=== PATIENT | male | born 1955 | race Caucasian/White ===

== ENCOUNTER 2016-05-10 14:03 | Day surgery (SDC) | payer MEDICARE, OTHER ==
[~2016-05-10] VITALS: Ht 180.3 cm; Wt 77.1 kg
--- NOTE | 2016-05-10 13:25 | PCM.HPANE ---
Patient Data Date of Service: May 10, 2016 Surgeon Admitting Provider: Attending Provider:Kranthi Aquino MD Primary Care Physician:Pelon Campos MD Other Provider:Mini Jarvis Anesthesia Reason for Visit Diarrhea Ht/WT & BMI Body Mass Index Allergies Coded Allergies: No Known Drug Allergies (Verified Allergy, Unknown, 05/09/16) Diabetes History Hx Diabetes?: No Medications Hypertension Medication: Yes Home Meds Incl Beta Edi: No Reported Medications Trazodone 150 Mg [id number] Mg PO HS Ref 0 05/10/16 Finasteride 5 Mg Tablet5 Mg PO DAILY 30 Days Ref 0 05/10/16 Terazosin 5 Mg Capsule5 Mg PO HS Ref 0 05/09/16 Omeprazole 40 Mg Capsule.dr40 Mg PO DAILY Ref 0 05/09/16 Losartan/HCTZ 50-12.5 mg 1 Each Tablet1 Tablet PO DAILY Ref 0 05/09/16 Diazepam 5 Mg Tablet5 Mg PO TID PRN For Anxiety Ref 0 05/09/16 Tadalafil (Cialis)5 Mg Tablet5 Mg PO PRN PRN ed Ref 0 As directed by physician. 05/09/16 Discontinued Reported Medications Cetirizine HCl (Zyrtec)10 Mg Morijdf77 Mg PO HS #30 CAPSULE Ref 0 05/09/16 Metoclopramide (Reglan)5 Mg Tablet5 Mg PO QID PRN For Nausea Ref 0 05/09/16 Pregabalin (Lyrica)100 Mg Bmclcut436 Mg PO TID 30 Days Ref 0 05/09/16 Lorazepam 1 Mg Tablet1 Mg PO HS PRN For Insomnia Ref 0 05/09/16 Glucosamine Sulfate 2Kcl (Glucosamine Relief)500 Mg Dyjkrmy198 Mg PO DAILY 05/09/16 [place]-3/Dha/Epa/Fish Oil (Fish Oil 1,000 mg Softgel)1 Each Capsule1 Each PO DAILY 05/09/16 Cromolyn Sodium 5 Gm Powder2,000 Unit PO DAILY 05/09/16 Naltrexone HCl/Bupropion HCl (Contrave ER 8-90 mg Tablet)1 Each Tablet.er2 Each PO DAILY 05/09/16 Ascorbic Acid/Bioflavonoids (C 1,950-Afrjdodbcjfta-Ph Cap)1 Each Capsule1 Each PO DAILY 05/09/16 History History of ENT Problems?: No Hx of Heart Problems?: No Hx of Respiratory Problem?: No Hx Neurologic Problems?: Yes Other History/Comments 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 Category 1B: Patient has history of documented sleep apnea, and HAS received any narcotic , sedative or anesthesia administration during this stay Category 2: Patient has SUSPECTED Obstructive Sleep Apnea, and HAS received any narcotic , sedative or anesthesia administration during this stay. Category 3: Patient has SUSPECTED Obstructive Sleep Apnea and HAS NOT received narcotic, sedative or anesthesia administration during this stay. Category 4: Outpatient in Procedural Areas with known sleep apnea or who screen positive for High Risk via the STOP/BANG questionnaire. Exam Exam General Appearance: Oriented X3, Cooperative, No Acute Distress HEENT/AIRWAY: MP 1 Lungs: Clear to Auscultation, Normal Air Movement Heart: Normal S1, Normal S2 Plan Impression Patient chart reviewed, patient interviewed and anesthestic plan with risks, benefits, and alternatives discussed, and informed consent obtained. ASA Physical Status: ASA2 Mod Systemic Disease Anesthetic Plan: MAC Bene/Risks/Altern/Consents: Yes HP Complete Prior to Induction: Yes Min Rivero DO May 10, 2016 13:25
[~2016-05-10 14:03] MED LIST: ASCO1CAP6 PO; CETI10CA PO; DIAZ5TAB3 PO; GLUC500C37 PO; LORA1TAB PO; LOSA1TAB69 PO; Lactated Ringer's 1,000 ML IV ONE; METO5TAB78 PO; NALT1TAB PO; OMEG-38 PO; OMEP40CA36 PO; PREG100C PO; TADA5TAB2 PO; TERA5CAP6 PO; [UNRECOGNIZED DRUG - CODE] PO
[2016-05-10] MEDS ORDERED: Propofol 10,000 mCg/mL 20 mL Inj ONE (14:04)
[2016-05-10] MEDS ORDERED: fentaNYL-PF 50 mCg/mL 2 mL Inj ONE (14:04)
[2016-05-10] MEDS ORDERED: Ketamine 10 mg/mL 20 mL Inj ONE (14:04)
[2016-05-10] MEDS ORDERED: TRAZ150T72 PO (14:18)
[2016-05-10] MEDS ORDERED: FINA5TAB9 PO (14:18)
[2016-05-10 14:29] VITALS: BP 104/71; PULSE 69; RESP 16; O2SAT 97
[2016-05-10] MEDS ORDERED: Lactated Ringer's 1,000 ML IV SCH (14:59)
[2016-05-10] MEDS ORDERED: MetoCLOpramide 5 mg/mL 2 mL Inj IVPUSH PRN (15:00)
[2016-05-10] MEDS ORDERED: Ondansetron 2 mg/mL 2 mL Inj IVPUSH PRN (15:00)
[2016-05-10 15:39] VITALS: BP 115/73; PULSE 66; O2SAT 95
[2016-05-10 15:49] VITALS: BP 132/82; PULSE 60; RESP 16; O2SAT 96
[2016-05-10 15:59] VITALS: BP 129/69; PULSE 63; RESP 16; O2SAT 98
--- NOTE | 2016-05-11 01:24 | ENDO ---
[address] [address] ENDOSCOPY PROCEDURE PATIENT: RASTA GILLIAM : 1955 MR#: [id number] ADMIT: 05/10/2016 JOB ID: [id number] DATE OF PROCEDURE: 05/10/2016 PROCEDURE: 1. Esophagogastroduodenoscopy with biopsy. 2. Colonoscopy with biopsy. PREOPERATIVE DIAGNOSIS(ES): Diarrhea, epigastric pain and gastroesophageal reflux disease. POSTOPERATIVE DIAGNOSIS(ES): 1. Normal upper endoscopy, status post biopsy. 2. Mild sigmoid diverticulosis. ANESTHESIA: Monitored anesthesia care. COMPLICATIONS: None. BLOOD LOSS: Minimal. DESCRIPTION OF PROCEDURE: After risks and benefits have been explained to the patient, informed consent was obtained. After anesthesia administered, the upper endoscope was inserted into the mouth and intubated into the esophagus, stomach, and second portion of duodenum, and the mucosa carefully examined. After the procedure, the scope withdrawn and the procedure terminated. Colonoscope was then inserted from the rectum to terminal ileum and mucosa carefully examined. Prep: The patient was fair. After the procedure was done, the scope was withdrawn and procedure terminated FINDINGS: Upon inspection of the esophagus, the esophagus was normal without masses, ulcers, or lesions. Z-line located 40 cm from incisors. Stomach: The stomach was also normal without masses, ulcers, or lesions. Retroflexion duodenal bulb, first and second portion were normal. Biopsies were taken of the duodenum, antrum, body of stomach, and distal esophagus. Upon inspection of the anus, no masses, hemorrhoids, ulcers, or fissures were seen. Throughout the entire examination, there were no polyps, masses, or lesions. There was mild sigmoid diverticulosis. Biopsies taken in terminal ileum and colon. Retroflexion was normal. IMPRESSION: 1. Normal upper endoscopy status post biopsy. 2. Mild sigmoid diverticulosis. RECOMMENDATION: Await pathology results. High-fiber diet. Follow up in GI clinic as needed.
--- NOTE | 2016-05-11 08:21 | PCM.ANEP1 ---
Post Anesthesia Phase 1 PACU Phase 1 Assessment Date of Service: May 10, 2016 Anesthetic Administered: MAC Level of Alertness: Awake, talking TOM's with Equal Strength: Yes Pain: No Nausea or Vomiting: No Lungs: Clear to Auscultation, Normal Air Movement Dermatome Level: Full Sensation Min Rivero DO May 11, 2016 08:21
--- NOTE | 2016-05-11 08:22 | PCM.ANEP2 ---
Post Anesthesia Evaluation ASA/CMS Post Anesthesia Date of Service: May 10, 2016 VS in Patient's Normal Range?: Yes Resp Stable; Airway Patent?: Yes CV Function & Hydration Stable: Yes Mental Status Recovered?: Yes Pain control Satisfactory?: Yes N/V Control Satisfactory?: Yes Min Rivero DO May 11, 2016 08:22
--- NOTE | 2016-05-13 10:09 | PATH ---
SURGICAL PATHOLOGY Attending Physician:Kranthi Aquino MD CASE STATUS: Signed Out PATIENT NAME: RASTA GILLIAM PID: [id number] : 1955 DATE COLLECTED:05/10/2016 00:00 SPECIMEN: 1: Duodenum, Biopsy 2: Stomach, Antrum, Biopsy 3: Gastric, Biopsy 4: Esophagus, Biopsy 5: Ileum, Biopsy 6: Rectum, Biopsy CLINICAL HISTORY: 1: DUODENAL BIOPSY 2: ANTRUM BIOPSY 3: GASTRIC BIOPSY 4: DISTAL ESOPHAGUS BIOPSY 5: T.I BIOPSY 6: RANDOM BIOPSY FINAL DIAGNOSIS: 1.DUODENAL BIOPSY: FRAGMENTS OF NORMAL-APPEARING DUODENUM MUCOSA. Normal delicate mucosal villi present. Negative for significant inflammation, dysplasia and malignancy. 2.ANTRUM BIOPSY: FOCAL MINIMAL CHRONIC GASTRITIS INVOLVING ANTRAL MUCOSA. Negative for evidence of Helicobacter. Negative for intestinal metaplasia. Negative for dysplasia and malignancy. 3.GASTRIC BIOPSY: FOCAL MINIMAL CHRONIC GASTRITIS INVOLVING FUNDIC MUCOSA. Negative for evidence of Helicobacter. Negative for intestinal metaplasia. Negative for dysplasia and malignancy. 4.DISTAL ESOPHAGUS BIOPSY: SQUAMOUS MUCOSA AND GASTRIC CARDIA-TYPE MUCOSA CHRONICALLY INFLAMED, WITH REACTIVE EPITHELIAL CHANGES. Negative for specialized metaplasia of Ortiz' s-type esophagus. Negative for dysplasia and malignancy. Rare eosinophils present within squamous epithelium consistent with changes of chronic reflux. 5.TERMINAL ILEUM BIOPSY: FRAGMENTS OF NORMAL-APPEARING TERMINAL ILEUM MUCOSA. Negative for granulomas. Negative for significant inflammation, dysplasia and malignancy. 6.RANDOM COLON BIOPSIES: FRAGMENTS OF NORMAL-APPEARING COLON MUCOSA. Negative for significant architectural distortion. Negative for significant inflammation, dysplasia and malignancy. ICD10 CODE K29.70 GROSS DESCRIPTION: The specimen is received in six formalin filled containers labeled with the patient's name. 1). The specimen is sublabeled "duodenal" and consists of 2 portions of tissue which aggregate to 0.3 x 0.3 x 0.2 CM. The specimen is entirely submitted in cassette 1A. 2). The specimen is sublabeled "antrum" and consists of 2 portions of tissue which aggregate to 0.2 x 0.2 x 0.2 CM. The specimen is entirely submitted in cassette 2A. 3). The specimen is sublabeled "gastric body" and consists of 2 portions of tissue which aggregate to 0.5 x 0.3 x 0.2 CM. The specimen is entirely submitted in cassette 3A. 4). The specimen is sublabeled "distal esophagus" and consists of 3 tiny portions of tissue which aggregate to 0.3 x 0.3 x 0.2 CM. The specimen is entirely submitted in cassette 4A. 5). The specimen is sublabeled "TI" and consists of 2 portions of tissue which aggregate to 0.3 x 0.2 x 0.2 CM. The specimen is entirely submitted in cassette 5A. 6). The specimen is sublabeled "random colon" and consists of 4 portions of tissue which aggregate to 0.4 x 0.4 x 0.2 CM. The specimen is entirely submitted in cassette 6A. 05/11/2016 DAC MICRO DESCRIPTION: See diagnosis. ICD-9 CODES: CPT CODES: 1: 57883 2: 81723 3: 88238 4: 57997 5: 74360 6: 99675 Electronically Signed Out Juanito Keita MD [facility], [place] [address] Technical component performed at [facility], [facility] [address], [place], [address]
== END 2016-05-10 23:59 | disposition home or self-care (01) ==
LOC: END 14:03
PROVIDERS: ATTEND Internal Medicine Gastroenterology
DX: K57.30 Diverticulosis of large intestine without perforation or abscess without bleeding (principal); R19.7 Diarrhea, unspecified; K29.50 Unspecified chronic gastritis without bleeding; K21.9 Gastro-esophageal reflux disease without esophagitis; R10.13 Epigastric pain; Z79.899 Other long term (current) drug therapy